=== PATIENT | male | born 1995 | race Caucasian/White ===

== ENCOUNTER 2021-06-27 10:32 | Emergency (ER) | payer OTHER ==
[2021-06-27 10:47] VITALS: BP 130/70; PULSE 63; TEMP 98.2; BMI 221.8
[2021-06-27] MEDS ORDERED: IBUPROFEN 600 MG TABLET (FP) PO ONE ×2 (11:48→11:55)
[2021-06-27 14:26] LABS: PHENCYCLIDINE,URINE NEGATIVE (NEGATIVE); URINE BENZODIAZEPINES NEGATIVE (NEGATIVE)
[2021-06-27 14:27] LABS: COCAINE, UR NEGATIVE (NEGATIVE); METHADONE, UR NEGATIVE (NEGATIVE); OPIATES, URI NEGATIVE (NEGATIVE); URINE AMPHETAMINES NEGATIVE (NEGATIVE); URINE BARBITURATES NEGATIVE (NEGATIVE)
== END 2021-06-27 13:07 | disposition home or self-care (01) ==
LOC: JER 10:32 → JERFT 10:32
DX: R07.9 Chest pain, unspecified (principal); V69.00XA Driver of heavy transport vehicle injured in collision with unspecified motor vehicles in nontraffic accident, initial encounter
CPT/HCPCS: 71046-TC-FY; 80307; 93005; 93010; 99284-25